=== PATIENT | male | born 1935 | race Caucasian/White ===

== ENCOUNTER 2019-03-12 16:07 | Inpatient (IN) ==
[2019-03-12] MEDS ORDERED: 0.9 % Sodium Chloride 1,000 ML IVC ONE (16:59)
[2019-03-12 17:11] LABS: Basophils # 0.1 K/mcL (0.0-0.2); Basophils % 0.7 %; Eosinophils # 0.3 K/mcL (0.0-0.6); Eosinophils % 4.6 %; Hematocrit 42.9 % (37.5-50.1); Immature Granulocytes % 0.3 % (0-4); Lymphocytes # 1.7 K/mcL (0.6-4.6); Lymphocytes % 23.7 %; Mean Corpuscular HGB Conc 32.6 g/dL (31.6-35.5); Mean Corpuscular Hemoglobin 32.3 pg (28.0-33.3); Mean Corpuscular Volume 99.1 fL (83.0-100.0); Mean Platelet Volume 10.7 fL (9.4-12.4); Monocytes # 0.9 K/mcL (0.0-1.3); Monocytes % 12.5 %; Neutrophils # 4.1 K/mcL (1.6-8.9); Platelet Count 211 K/mcL (140-400); Red Blood Count 4.33 M/mcL (4.19-5.50); Red Cell Distribution Width 12.8 % (11.5-14.5); Segmented Neutrophils % 58.2 %; White Blood Count 7.1 K/mcL (4.3-11.1)
[2019-03-12 17:22] LABS: Alanine Aminotransferase 16 Units/L (7-52); Albumin 3.9 g/dL (3.5-5.7); Albumin/Globulin Ratio 1.9 (1.1-2.2); Alkaline Phosphatase 49 Units/L (34-104); Aspartate Amino Transferase 20 Units/L (13-39); BUN/Creatinine Ratio 18 (6-26); Bilirubin,Total 0.3 mg/dL (0.3-1.0); Blood Urea Nitrogen 28 mg/dL (8-23); C-Reactive Protein < 5 mg/L (Less than 10); Calcium 9.1 mg/dL (8.6-10.3); Carbon Dioxide 24 mEq/L (23-29); Chloride 111 mEq/L (98-107); Globulin 2.1 g/dL (2.4-3.5); Glucose 104 mg/dL (70-105); Osmolality,Calculated 296 (280-300); Potassium 4.6 mEq/L (3.5-5.1); Sodium 140 mEq/L (136-145); Troponin I < 0.03 ng/mL (< 0.04); eGFR For African Americans 50 (> 60); eGFR For Non-African Americans 41 (> 60)
[2019-03-12 17:26] LABS: INR 0.9; Prothrombin Time 10.5 Seconds (9.4-12.1)
[2019-03-12 17:36] LABS: Thyroid Stimulating Hormone 1.605 mcIU/mL (0.340-5.600)
[2019-03-12 18:01] LABS: Bilirubin,Urine Negative (Negative); Blood,Urine Negative (Negative); Clarity,Urine Clear (Clear); Color,Urine Yellow (Yellow); Glucose,Urine (UA) Normal (Normal); Ketones,Urine Trace mg/dL (Negative); Leukocyte Esterase,Urine Negative (Negative); Nitrite,Urine Negative (Negative); PH,Urine 5.5 pH Units (5.0-8.0); Protein,Urine Negative (Neg-Trace); Urobilinogen,Urine Normal (Normal)
[2019-03-12] MEDS ORDERED: Aspirin 325 MG TABLET PO ONE (19:28)
[2019-03-12] MEDS ORDERED: Naloxone 0.4 MG/ML INJ IVP PRN (23:42)
[2019-03-13] MEDS: 0.9 % Sodium Chloride 1,000 ML IVC SCH ×2 (00:19→12:31)
[2019-03-13 04:42] LABS: Hematocrit 39.8 % (37.5-50.1); Hemoglobin 12.7 g/dL (12.9-16.9); Mean Corpuscular HGB Conc 31.9 g/dL (31.6-35.5); Mean Corpuscular Hemoglobin 31.8 pg (28.0-33.3); Mean Corpuscular Volume 99.7 fL (83.0-100.0); Mean Platelet Volume 12.1 fL (9.4-12.4); Platelet Count 141 K/mcL (140-400); Red Blood Count 3.99 M/mcL (4.19-5.50); Red Cell Distribution Width 12.7 % (11.5-14.5); White Blood Count 6.7 K/mcL (4.3-11.1)
[2019-03-13 05:03] LABS: BUN/Creatinine Ratio 18 (6-26); Blood Urea Nitrogen 23 mg/dL (8-23); Calcium 8.4 mg/dL (8.6-10.3); Carbon Dioxide 23 mEq/L (23-29); Chloride 113 mEq/L (98-107); Glucose 92 mg/dL (70-105); Osmolality,Calculated 297 (280-300); Potassium 4.3 mEq/L (3.5-5.1); Sodium 142 mEq/L (136-145); eGFR For African Americans > 60 (> 60); eGFR For Non-African Americans 52 (> 60)
[2019-03-13] MEDS: *HR* Heparin 5,000 UNIT/ML VIAL SQ SCH ×2 (05:48→18:11)
[2019-03-13] MEDS: Aspirin Enteric Coated 81 MG Tablet PO SCH (10:19)
[2019-03-13] MEDS ORDERED: Perflutren Lipid Microsphere 1.3 ML in 0.9 % Sodium Chloride 8.7 ML IVP ONE (14:04)
[2019-03-13] MEDS ORDERED: Perflutren Lipid Microsphere 2 ML VIAL ONE (14:05)
[2019-03-13] MEDS: Latanoprost 2.5 ML BOTTLE BOTH EYES SCH (20:09)
[2019-03-14] MEDS: *HR* Heparin 5,000 UNIT/ML VIAL SQ SCH ×2 (06:01→17:15)
[2019-03-14] MEDS ORDERED: Regadenoson 0.4 MG/5 ML SYRINGE IVP ONE (06:29)
[2019-03-14] MEDS: Lisinopril 20 MG TABLET PO SCH (11:13)
[2019-03-14] MEDS: Aspirin Enteric Coated 81 MG Tablet PO SCH (11:13)
[2019-03-14] MEDS: Latanoprost 2.5 ML BOTTLE BOTH EYES SCH (19:58)
[2019-03-15] MEDS: *HR* Heparin 5,000 UNIT/ML VIAL SQ SCH (05:50)
[2019-03-15 06:13] LABS: BUN/Creatinine Ratio 16 (6-26); Blood Urea Nitrogen 21 mg/dL (8-23); Calcium 9.2 mg/dL (8.6-10.3); Carbon Dioxide 25 mEq/L (23-29); Chloride 108 mEq/L (98-107); Glucose 104 mg/dL (70-105); Osmolality,Calculated 289 (280-300); Potassium 4.3 mEq/L (3.5-5.1); Sodium 138 mEq/L (136-145); eGFR For African Americans > 60 (> 60); eGFR For Non-African Americans 50 (> 60)
[2019-03-15] MEDS: Aspirin Enteric Coated 81 MG Tablet PO SCH (08:41)
[2019-03-15] MEDS: Lisinopril 20 MG TABLET PO SCH (08:41)
[2019-03-15 12:16] VITALS: BP 151/63
== END 2019-03-15 14:27 | disposition home or self-care (01) | DRG 65 ==
LOC: 3BNU 16:07 → EMEROOARM 16:07 → SUATTDRO 19:56 → 3BNU 20:26
PROVIDERS: ADMIT Internal Medicine; ATTEND Internal Medicine

== ENCOUNTER 2020-08-06 06:55 | Observation (INO) ==
[2020-08-06] MEDS ORDERED: Naloxone 0.4 MG/ML INJ IVP PRN (12:32)
[2020-08-06] MEDS ORDERED: Perflutren Lipid Microsphere 1.3 ML in 0.9 % Sodium Chloride 8.7 ML IVP PRN (13:09)
[2020-08-06] MEDS ORDERED: Warfarin perPT PO PRN (18:00)
[2020-08-06] MEDS ORDERED: *HR* Warfarin 2.5 MG TABLET PO ONE (18:00)
[2020-08-06] MEDS ORDERED: Latanoprost 2.5 ML BOTTLE BOTH EYES SCH (21:00)
[2020-08-06] MEDS: Acetaminophen 325 MG TABLET PO PRN (21:07)
[2020-08-07] MEDS: Acetaminophen 325 MG TABLET PO PRN ×2 (03:55→08:48)
[2020-08-07 06:11] LABS: Basophils % 0.6 %; Eosinophils # 0.3 K/mcL (0.0-0.6); Eosinophils % 4.2 %; Hemoglobin 12.7 g/dL (12.9-16.9); Immature Granulocytes % 0.1 % (0-4); Lymphocytes # 1.2 K/mcL (0.6-4.6); Lymphocytes % 16.1 %; Mean Corpuscular HGB Conc 33.4 g/dL (31.6-35.5); Mean Corpuscular Hemoglobin 30.8 pg (28.0-33.3); Mean Platelet Volume 10.1 fL (9.4-12.4); Monocytes % 13.9 %; Neutrophils # 4.7 K/mcL (1.6-8.9); Platelet Count 172 K/mcL (140-400); Red Blood Count 4.13 M/mcL (4.19-5.50); Red Cell Distribution Width 12.5 % (11.5-14.5); Segmented Neutrophils % 65.1 %; White Blood Count 7.2 K/mcL (4.3-11.1)
[2020-08-07 06:32] LABS: Calcium 8.9 mg/dL (8.6-10.3); INR 3.2; Potassium 4.8 mEq/L (3.5-5.1); Prothrombin Time 35.7 Seconds (9.4-12.1)
[2020-08-07] MEDS ORDERED: Regadenoson 0.4 MG/5 ML SYRINGE IVP ONE (06:54)
[2020-08-07] MEDS ORDERED: 0.9 % Sodium Chloride 1,000 ML IVC SCH (07:30)
[2020-08-07] MEDS ORDERED: lisinopriL 20 MG TABLET PO SCH (09:00)
[2020-08-07] MEDS ORDERED: NON-FORMULARY MEDICATION 1 EACH EACH (Omega-3/Dha/Epa/Fish Oil [Fish Oil 1,000 Mg Softgel] PO SCH (09:00)
[2020-08-07] MEDS ORDERED: Multivit/Ca/Min/Fe/FA 1 TAB TABLET PO SCH (09:00)
[2020-08-07] MEDS ORDERED: Ascorbic Acid 500 MG TABLET PO SCH (09:00)
[2020-08-07] MEDS ORDERED: Cholecalciferol (D-3) 1,000 UNIT (25MCG) TABLET PO SCH (09:00)
[2020-08-07 15:37] VITALS: BP 113/52
[2020-08-07 17:10] LABS: Calcium 8.9 mg/dL (8.6-10.3); Potassium 4.6 mEq/L (3.5-5.1)
[2020-08-07] MEDS ORDERED: *HR* Warfarin 0.5 MG TABLET PO ONE (18:00)
== END 2020-08-07 18:35 | disposition home or self-care (01) ==
LOC: 3BNU
PROVIDERS: ADMIT Internal Medicine; ATTEND Internal Medicine